=== PATIENT | male | born 1955 | race Caucasian/White ===

== ENCOUNTER 2024-03-07 08:43 | Day surgery (SDC) | payer MEDICARE ==
[~2024-03-07] VITALS: Ht 167.6 cm; Wt 81.0 kg
[2024-03-07 08:56] VITALS: BP 151/81; PULSE 95; RESP 8
[2024-03-07] MEDS ORDERED: PANT-47 PO (09:18)
[2024-03-07] MEDS ORDERED: AMLO5TAB18 PO (09:19)
[2024-03-07] MEDS ORDERED: AMLO10TA PO (09:23)
[2024-03-07] MEDS ORDERED: METO25TA6 PO (09:24)
[2024-03-07] MEDS ORDERED: LISI10TA27 PO (09:25)
[2024-03-07] MEDS ORDERED: PRAV20TA4 PO (09:25)
[2024-03-07] MEDS ORDERED: LEVO137T2 PO (09:25)
[2024-03-07] MEDS ORDERED: MIDAZolam 1 MG/ML 5ML VIAL ONE (10:15)
[2024-03-07] MEDS ORDERED: diphenhydrAMINE 50 mg/ml inj ONE (10:15)
[2024-03-07] MEDS ORDERED: fentaNYL/PF 50MCG/1 ML 2ML syringe ONE (10:15)
[2024-03-07 10:49] VITALS: BP 113/73; PULSE 78; RESP 17; O2SAT 95
[2024-03-07 10:59] VITALS: BP 110/71; PULSE 75; RESP 18; O2SAT 97
[2024-03-07 11:09] VITALS: BP 111/71; PULSE 73; RESP 18; O2SAT 96
[2024-03-07 11:19] VITALS: BP 112/72; PULSE 71; RESP 19; O2SAT 95
== END 2024-03-07 11:45 | disposition home or self-care (01) ==
LOC: GI LAB 08:43
PROVIDERS: ATTEND Internal Medicine Gastroenterology
DX: R19.5 Other fecal abnormalities (principal); D12.0 Benign neoplasm of cecum; C18.7 Malignant neoplasm of sigmoid colon; K64.8 Other hemorrhoids; K57.30 Diverticulosis of large intestine without perforation or abscess without bleeding
CPT/HCPCS: 45380; 45385; 88341; 88342; G0500; J1200; J2250; J3010; J7030; Z7512; 45378; 88305; 99152; 99153; A4620; C1889